=== PATIENT | male | born 1985 | race Two or more races ===

== ENCOUNTER → 2020-05-17 | Emergency (ER) | payer SELFPAY | END | disposition still patient (30) | LOC: SED 10:27 | DX: R42 Dizziness and giddiness (principal); Z53.21 Procedure and treatment not carried out due to patient leaving prior to being seen by health care provider ==

== ENCOUNTER 2020-10-29 15:09 | Emergency (ER) | payer MEDICAID ==
[~2020-10-29] VITALS: Ht 175.3 cm; Wt 77.1 kg
[2020-10-29 15:23] VITALS: BP_SYST 151
[2020-10-29] MEDS ORDERED: NACL 0.9% 1,000 ML IV ONE (15:30)
[2020-10-29] MEDS ORDERED: LORazepam 2 MG/ML VIAL IVP ONE (16:00)
[2020-10-29 17:14] LABS: BARBITURATE, URINE NEGATIVE (NEG <=200); BENZODIAZEPINE, URINE NEGATIVE (NEG <=150); CANNABINOID, URINE POSITIVE (NEG <=50); COCAINE, URINE NEGATIVE (NEG <=150); METHAMPHETAMINES SCREEN,URINE NEGATIVE (NEG <=500); OPIATE, URINE NEGATIVE (NEG <=100); PHENCYCLIDINE SCREEN,URINE NEGATIVE (NEG <=25); UR TRICYCLIC ANTIDEPRESSANTS NEGATIVE (NEG <=300); URINE AMPHETAMINE NEGATIVE (NEG <=500); URINE METHADONE NEGATIVE (NEG <=200); URINE OXYCODONE SCREEN NEGATIVE (NEG <=100); URINE PROPOXYPHENE SCREEN NEGATIVE (NEG <=300)
[2020-10-29 17:34] LABS: CALCIUM 9.7 mg/dL (8.4-11.0); CREATININE 1.22 mg/dL (0.55-1.30); POTASSIUM 3.4 mmol/L (3.5-5.1)
[2020-10-29 17:35] LABS: ALBUMIN 4.6 g/dL (3.4-4.8); FREE T4 (FREE THYROXINE) 1.4 ng/dl (0.8-1.5); THYROID STIMULATING HORMONE 1.1 uIu/mL (0.36-3.74); TOTAL BILIRUBIN 0.9 mg/dL (0.0-1.0)
[2020-10-29 19:14] VITALS: BP_SYST 115
== END 2020-10-29 19:14 | disposition home or self-care (01) ==
LOC: SED 15:09
DX: F41.0 Panic disorder [episodic paroxysmal anxiety] (principal); F12.10 Cannabis abuse, uncomplicated; I10 Essential (primary) hypertension; Z79.899 Other long term (current) drug therapy
CPT/HCPCS: 36415; 80053; 80307; 84439; 84443; 96361; 96374; 99283; J2060; J7030